=== PATIENT | male | born 1975 | race Caucasian/White ===

== ENCOUNTER 2021-03-07 06:26 | Inpatient (IN) | payer OTHER ==
[2021-03-07 08:27] LABS: ACTIVATED PTT 28.8 SECONDS (25.2-36.5)
[2021-03-07 08:30] LABS: ALBUMIN 4.1 g/dl (3.4-5.0); BILIRUBIN,TOTAL 0.9 mg/dl (0.2-1); CALCIUM 8.4 mg/dl (8.5-10); CREATININE 0.5 mg/dl (0.55-1.3); TOT PROT 7.2 g/dl (6.4-8.2)
[2021-03-07 08:31] LABS: INR 1.17 (0.82-1.09); PROTHROMBIN TIME (PATIENT) 13.1 SEC (10.2-13.0)
[2021-03-07] MEDS ORDERED: ACETAMINOPHEN 1000 MG/100 ML VIAL IVPB ONE (09:21)
[2021-03-07] MEDS ORDERED: SODIUM CHLORIDE 1,000 ML IV STA (09:21)
[2021-03-07] MEDS ORDERED: ACETAMINOPHEN INJECTION 100 ML IVPB ONE (09:22)
[2021-03-07 10:43] LABS: BASO % 0.3 % (0-2.0); EOS % 1.6 % (0-4.5); HEMATOCRIT 45.9 % (35.4-49); HEMOGLOBIN 15.5 GM/dL (11.7-16.9); LYMPH % 15.4 % (8-40); MCH 29.3 pg (25.7-33.7); MCHC 33.8 g/dl (32.0-35.9); MEAN CELL VOLUME 86.8 fl (80-96); MEAN PLT VOLUME 9.8 fl (7.5-11.1); NEUT % 75.7 % (42.8-82.8); PLATELET COUNT 204 10^3/uL (134-434); RBC 5.29 M/mm3 (4.00-5.60); RDW 13.3 % (11.9-15.9); WHITE BLOOD COUNT 11.4 K/mm3 (4.0-10.0)
[2021-03-07] MEDS ORDERED: ONDANSETRON 4 MG/2 ML VIAL IVPUSH PRN ×2 (12:17→14:51)
[2021-03-07] MEDS ORDERED: LACTATED RINGERS SOLUTION 1,000 ML IV SCH ×2 (12:30→14:51)
[2021-03-07] MEDS ORDERED: BUPIVACAINE HCL/PF 0.5% (5MG/ML) 10 ML VIAL ONE (12:34)
[2021-03-07] MEDS ORDERED: ROCURONIUM BROMIDE 50 MG/5 ML SYRINGE ONE ×2 (12:35→14:10)
[2021-03-07] MEDS ORDERED: PROPOFOL 20 ML ONE ×2 (12:35→14:11)
[2021-03-07] MEDS ORDERED: CEFOXITIN SODIUM 1 GM IVPB ONE (13:05)
[2021-03-07] MEDS ORDERED: cefOXitin SODIUM 1 GM VIAL (RESTRICTED TO ID) IVPB ONE (13:15)
[2021-03-07] MEDS ORDERED: BUPIVACAINE HCL/PF 0.5% (5MG/ML) 10 ML VIAL IJ ONE (14:15)
[2021-03-07] MEDS ORDERED: NEOSTIGMINE METHYLSULFATE 0.5 MG/1 ML - 10 ML MDV ONE (14:18)
[2021-03-07] MEDS ORDERED: oxyCODONE HCL 5 MG TABLET PO PRN ×4 (14:41→14:51)
[2021-03-07 16:20] VITALS: BMI 25.2
[2021-03-07] MEDS: HEPARIN NA (PORCINE) 5,000 UNITS/ML 1ML VIAL SQ SCH (21:42)
[2021-03-07] MEDS ORDERED: HEPARIN NA (PORCINE) 5,000 UNITS/ML 1ML VIAL SQ SCH (22:00)
[2021-03-08] MEDS: HEPARIN NA (PORCINE) 5,000 UNITS/ML 1ML VIAL SQ SCH (06:14)
[2021-03-08 08:40] LABS: HEMATOCRIT 38.3 % (35.4-49); HEMOGLOBIN 13.1 GM/dL (11.7-16.9); MCH 29.4 pg (25.7-33.7); MCHC 34.2 g/dl (32.0-35.9); MEAN CELL VOLUME 85.8 fl (80-96); PLATELET COUNT 200 10^3/uL (134-434); RBC 4.47 M/mm3 (4.00-5.60); RDW 12.8 % (11.9-15.9); WHITE BLOOD COUNT 11.1 K/mm3 (4.0-10.0)
[2021-03-08 10:58] VITALS: BP 120/72; PULSE 87; TEMP 98.6
== END 2021-03-08 12:28 | disposition home or self-care (01) | DRG 228 ==
LOC: FER 06:26 → JER 06:26 → JERBED 09:42 → J8W 15:45
PROVIDERS: ADMIT Internal Medicine; ATTEND Nurse Practitioner Acute Care
PROC: 0YU607Z Supplement Left Inguinal Region with Autologous Tissue Substitute, Open Approach (ICD-10-PCS; principal; 2021-03-07 12:00)
DX: K40.30 Unilateral inguinal hernia, with obstruction, without gangrene, not specified as recurrent (principal); Z20.822 Contact with and (suspected) exposure to COVID-19
CPT/HCPCS: 36415; 74177-TC; 76870-TC; 80053; 81003; 85025; 85027; 85610; 85730; 86850; 86900; 86901; 94760; 99285-25; C9803; J0131; J1644; Q9967; U0003; U0005